=== PATIENT | male | born 1980 | race Caucasian/White ===

== ENCOUNTER 2024-03-04 10:59 | Outpatient (REF) | payer BC, SELFPAY ==
[2024-03-04 11:07] LABS: MANUAL DIFF FLAG NO
[2024-03-04 11:10] LABS: Eosinophils Absolute Auto 0.4 X10*3/uL (0.0-0.4); Eosinophils Percent Auto 8.4 % (0-4); Hematocrit 42.6 % (42.0-52.0); Hemoglobin 14.6 g/dl (14.0-18.0); Lymphocytes Absolute Auto 1.6 X10*3/uL (1.2-4.9); Lymphocytes Percent Auto 38.3 % (20-40); Mean Corpuscular HGB Conc 34.3 g/dl (31.0-36.0); Mean Corpuscular Hemoglobin 29.3 pg (27.0-33.0); Mean Corpuscular Volume 85.5 fL (80.0-98.0); Mean Platelet Volume 9.6 fL (9.4-12.4); Monocytes Absolute Auto 0.4 X10*3/uL (0.1-1.2); Monocytes Percent Auto 9.6 % (2-11); Neutrophils Absolute Auto 1.8 x10*3/uL (2.0-8.3); Neutrophils Percent Auto 42.7 % (45-73); Platelet Count 245 X10*3/uL (160-400); Red Blood Count 4.98 X10*6/uL (4.60-5.80); Red Cell Distribution Width 13.3 % (11.0-16.0); White Blood Count 4.2 X10*3/uL (4.8-10.8)
[2024-03-04 11:37] LABS: Appearance Urine Clear; Color Urine Yellow; Glucose Urine UA Negative (Negative); Leukocyte Esterase Urine Negative (Negative); Nitrite Urine Negative (Negative); Specific Gravity - Urine 1.025 (1.005-1.025); Urine Blood Negative (Negative); Urine Ketones Negative (Negative); Urine Protein Negative (Neg-Trace)
[2024-03-04 11:42] LABS: Bacteria Urine None Seen (None Seen); Hyaline Casts Urine 0-2 /LPF (0-2); RBC Urine 0-2 /HPF (0-2); Squamous Epithelial Cell Urine 0-2 /HPF (0-2); WBC Urine 0-5 /HPF (0-5)
[2024-03-04 11:45] LABS: Alanine Aminotransferase 23 U/L (0-40); Albumin Level 4.1 g/dL (3.5-5.0); Alkaline Phosphatase 61 U/L (39-117); Anion Gap 15 (12-20); Aspartate Amino Transferase 21 U/L (5-37); Bilirubin Total 0.3 mg/dL (0.0-1.0); Blood Urea Nitrogen 15 mg/dL (9-16); Calcium 9.2 mg/dL (8.4-10.2); Carbon Dioxide 27 mmol/L (22-29); Chloride 104 mmol/L (96-108); Cholesterol 178 mg/dL (<200); Estimated Glomerular Filt Rate > 60; Glucose Fasting 103 mg/dL (60-99); HDL Cholesterol 43 mg/dL (>40); LDL Cholesterol Calculated 122 mg/dL (<100); PSA,Total (Free>4and<10) 0.26 ng/mL (0.00-4.00); Sodium 142 mmol/L (135-145); Total Protein 7.1 g/dL (6.5-8.0); Triglycerides 69 mg/dL (<150)
== END 2024-03-04 11:00 | disposition home or self-care (01) ==
LOC: HO.LNP 10:59
PROVIDERS: Visit Provider Internal Medicine
DX: Z00.00 Encounter for general adult medical examination without abnormal findings (principal); Z12.5 Encounter for screening for malignant neoplasm of prostate
CPT/HCPCS: 80053; 80061; 81001; 84153; 85025

== ENCOUNTER 2024-11-11 10:47 | Day surgery (SDC) | payer BC, SELFPAY ==
[2024-11-11 11:07] VITALS: BP 150/92; PULSE 74; RESP 16; TEMP 36.3; O2SAT 99; BMI 30.5
--- NOTE | 2024-11-11 11:29 | P.CONAN_ITS ---
[facility] Past Medical History Medical History (Updated 11/11/24 @ 11:06 by Karolina Kulkarni RN) ADRIANA (obstructive sleep apnea) Family History Family history of problems with anesthesia: No Surgical History Surgical History (Updated 11/11/24 @ 11:06 by Karolina Kulkarni RN) Hx of left knee surgery History of Problems with Anesthesia: No Social History Social History Are you a primary career and guidance counselor to a significant other at home: No Do you presently have visiting nurse or other home services: No Patient Tobacco Use Status: Former Tobacco user Use of substances other than those prescribed or required for medical reasons: No Have you been hit, kicked, punched, or otherwise hurt by someone within the past year? If so, by whom?: No Are you DNR?: No Advance Directives: No Advance Directives Information Provided: No Advance Directives on File: No Recently lost weight without trying: No How much weight loss: Not applicable Eating poorly because of decreased appetite: No Nutrition screen score: 0 Nutrition Risks: No Nutritional Risk Poor oral hygiene: No Meds Allergies Allergy/AdvReac Type Severity Reaction Status Date / Time Penicillins [PCN] Allergy Intermediate Swelling Verified 11/11/24 11:00 cinnamon AdvReac Intermediate Canker Verified 11/11/24 11:01 Sores Home Medications ?Medication ?Instructions ?Recorded ?Confirmed ?Last Taken ?Type No Known Home Meds 11/11/24 11/11/24 Unknown History Exam Height,Weight and Vital Signs: Height 5 ft 11 in Weight 99.155 kg Last Vital Signs Temp 97.4 F 11/11/24 11:07 Pulse 74 11/11/24 11:07 Resp 16 11/11/24 11:07 BP 150/92 H 11/11/24 11:07 Pulse Ox 99 11/11/24 11:07 O2 Del Method Room Air 11/11/24 11:07 Airway Mallampati Class: II (perm retainer top) TM Dist: >3cm Neck ROM: Full Heart: rrr Lungs: cta Assessment and Plan Assessment Anesthesia Assessment: Anesthesia Plan Discussed and Chart Reviewed Final Anesthetic Review Family History of Problems with Anesthesia: No History of Problems with Anesthesia: No NPO: Yes ASA Class: II Final Preanesthetic Review: No Changes in Pt Med Stat, Meds/Allgs Chart Reviewed and Consent Obtained/Reviewed Patient Risk: Low Procedure Risk: Low Anesthetic Plan Anesthetic Plan: MAC: Disposition: Standard PACU
[2024-11-11 13:02] VITALS: BP 99/72; PULSE 81; RESP 16; TEMP 36.1; O2SAT 96
--- NOTE | 2024-11-11 13:09 | P.BOP_ITS ---
Brief Operative Note Date of Service: 11/11/24 Pre-op diagnosis: Screening Post-op diagnosis: other (Internal hemorrhoids) Procedure: Colonoscopy to the cecum and TI Surgeon: Iván Stein MD Anesthesia: MAC Was an Machine Woodworking Sander used for this Procedure?: No Estimated blood loss (mL): 0 Pathology: none sent Condition: stable Disposition: PACU
[2024-11-11 13:17] VITALS: BP 101/62; PULSE 65; RESP 16; O2SAT 95
--- NOTE | 2024-11-11 13:43 | OP_ITS ---
DATE OF SERVICE: 11/11/2024 SURGEON: Iván Stein MD INDICATIONS: The patient presents for evaluation of colorectal cancer screening and family history of colorectal cancer and polyps. Full consent obtained from him for this, including risks of bleeding and perforation. PREOPERATIVE DIAGNOSIS: POSTOPERATIVE DIAGNOSIS: PROCEDURE PERFORMED: Colonoscopy to the cecum and terminal ileum. ESTIMATED BLOOD LOSS: COMPLICATIONS: ANESTHESIA: Monitored anesthesia care. ASSISTANTS: SPECIMENS: PREOPERATIVE DIAGNOSES: Colorectal cancer screening and family history of colorectal cancer and polyps. POSTOPERATIVE DIAGNOSES: Colorectal cancer screening and family history of colorectal cancer and polyps. Internal hemorrhoids. DESCRIPTION OF PROCEDURE: The patient was placed in the left lateral decubitus position. The digital rectal exam revealed no abnormalities. The Olympus video pediatric colonoscope was entered into the rectum and advanced easily to the cecum. Once in the cecum, I identified a normal-appearing cecal pouch with appendiceal orifice and a normal-appearing ileocecal valve. The terminal ileum was cannulated and appeared normal. Scope withdrawn back in the colon. The entire cecum and ileocecal valve appeared normal. The scope was slowly withdrawn, assessing all mucosal surfaces carefully. Preparation was excellent. I did not visualize any sign of polyps, colitis, nor angiodysplasia. In the rectum, scope was retroflexed, visualizing internal hemorrhoids, but no other pathology. The rectal mucosa appeared normal. The scope was straightened and withdrawn from the patient. He tolerated the procedure well and was returned to recovery area in stable condition. IMPRESSION: Internal hemorrhoids. PLAN: Given his family history of his father having had colorectal cancer and 2 brothers having had colon polyps, I recommended another colonoscopy for screening in 5 years rather than 10 despite having the negative colonoscopy today. He will see me in the interim on a p.r.n. basis. This has been discussed with his . MD PABLO Stephen/TEJAS / [phone] MTDKishor
== END 2024-11-11 13:37 | disposition home or self-care (01) ==
PROVIDERS: PCP Internal Medicine; Visit Provider Internal Medicine
PROC: 0DJD8ZZ Inspection of Lower Intestinal Tract, Via Natural or Artificial Opening Endoscopic (ICD-10-PCS; CPT 45378; principal; 2024-11-11 12:00)
DX: Z12.11 Encounter for screening for malignant neoplasm of colon (principal); Z80.0 Family history of malignant neoplasm of digestive organs; Z83.719 Family history of colon polyps, unspecified; K64.8 Other hemorrhoids; Z98.890 Other specified postprocedural states; Z88.0 Allergy status to penicillin
CPT/HCPCS: 45378; J2003; J2704

== ENCOUNTER 2025-03-07 10:28 | Outpatient (REF) | payer BC, SELFPAY ==
[2025-03-07 10:30] LABS: MANUAL DIFF FLAG NO
--- OUTSIDE RECORDS SUMMARY | 2025-03-07 10:53 | XMS_ITS ---
Author Organization [facility] Address [address] [place] [phone] Care Team Providers Care Change Coordinator Name Role Phone Live Cunningham MD Primary Care Provider Iván Richards Unavailable [phone] Allergies Allergen (clinical drug ingredient) Drug/Non Drug Allergy documented on EMR Reaction Allergy Type Onset Date Status Penicillin Unknown Drug Allergy Active REASON FOR VISIT Patient presents today for colon screening Immunizations Vaccine Route Administration Date Status Comme nts Influenza Unknown 07/17/2024 Refused Social History Tobacco Use: Social History Observation Description Date Details (start date - stop date) Never Smoker NA - NA Tobacco Use/Smoking Question Answer Notes Patient is a nonsmoker Alcohol Screen Question Answer Notes Did you have a drink contain ing alcohol in the past year? Yes How often did you have a dri nk containing alcohol in the past year? 2 to 4 times a month (2 points) How many drinks did you have on a typical day when you were drinking in the past year? 1 or 2 drinks (0 point) How often did you have 6 or more drinks on one occasion in the past year? Never (0 point) Points 2 Interpretation Negative Section Notes: Nonsmoker; no sig alcohol Problems Problem Type SNOMED Code ICD Code Onset Dates Problem Status W/U Status Risk Notes Problem Colon cancer screening (599657397) Colon cancer screening (Z12.11) Active confirmed Problem Family History of Cancer of Colon (Situation) (172503822) Family history of colon cancer (Z80.0) Active confirmed Problem Pre-procedure evaluation check (389359397) Encounter for other preprocedural examination (Z01.818) Active confirmed Vital Signs Temperature 97.7 degrees Fahrenheit 07/17/20 24 Blood pressure systolic 000 mm Hg 07/17/20 24 Blood pressure diastolic 00 mm Hg 024 Height 5 ft 11 in in 07/17/2024 Weight 205 lb 6 oz lbs 07/17/2024 BMI 28.64 kg/m2 07/17/2024 Encounters Encounter Location Date Provider Diagnosis [facility] [address] [place] [address] 07/17/2024 Iván Stein Colon cancer screeni ng Z12.11 ; Encounter for other preprocedural examination Z01.818 and Family history of colon cancer Z80.0 Assessments Encounter Date Diagnosis (ICD Code) Assessment Notes Treatment Notes Treatment Clinical Notes Section Notes 07/17/2024 Colon cancer screening (ICD-10 - Z12.11) Overall, Feliz appears quite well. Given his age, excellent clinical appearance, and significant family history, I did recommend a colonoscopy for screening purposes. We did review the rationale for this in regard to colon cancer prevention. Full consent is obtained for this, including risks of bleeding and perforation. The procedure will be done with monitored anesthesia care. I did advise him that even if this colonoscopy is negative I would then recommend another colonoscopy approximately 5 years thereafter given his family history. Feliz was comfortable with this plan. Thank you again for allowing me to participate in Feliz's care. I shall continue to keep you advised of his progress. 07/17/2024 Encounter for other preprocedural examination (ICD-10 - Z01.818) Overall, Feliz appears quite well. Given his age, excellent clinical appearance, and significant family history, I did recommend a colonoscopy for screening purposes. We did review the rationale for this in regard to colon cancer prevention. Full consent is obtained for this, including risks of bleeding and perforation. The procedure will be done with monitored anesthesia care. I did advise him that even if this colonoscopy is negative I would then recommend another colonoscopy approximately 5 years thereafter given his family history. Feliz was comfortable with this plan. Thank you again for allowing me to participate in Feliz's care. I shall continue to keep you advised of his progress. 07/17/2024 Family history of colon cancer (ICD-10 - Z80.0) Overall, Feliz appears quite well. Given his age, excellent clinical appearance, and significant family history, I did recommend a colonoscopy for screening purposes. We did review the rationale for this in regard to colon cancer prevention. Full consent is obtained for this, including risks of bleeding and perforation. The procedure will be done with monitored anesthesia care. I did advise him that even if this colonoscopy is negative I would then recommend another colonoscopy approximately 5 years thereafter given his family history. Feliz was comfortable with this plan. Thank you again for allowing me to participate in Feliz's care. I shall continue to keep you advised of his progress. Plan Of Treatment Future Test Test Name Order Date COLONOSCOPY 07/17/2024 Next Appt Details Follow Up: prn, Reason: Progress Notes * GENOVEVA CANALESDOB:1979 (43 yo M)Acc No.[id number]:07/17/2024 Progress Notes Patient:?GENOVEVA CANALES Provider:?Iván Stein MD :1980???Age:43 Y???Sex:Male Dakota e:07/17/2024 Address:[address] [place], [place] [id number] Pcp:Live Cunningham MD Subjective: * Chief Complaints: * ???Patient presents today fo r colon screening * HPI: ???incontinence:? I saw Feliz in the office today for evaluation of colorectal cancer screening in regard to his family history of rectal cancer in his father and colon polyps in 2 brothers. ?As you know, Feliz is a healthy 43-year-old male who presently feels very well. He enjoys a good appetite, without any significant heartburn or dysphagia. His bowel movements have been regular and without any signs of bleeding. He denies any abdominal pain, jaundice, nor weight loss. He has never had a colonoscopy. He does describe his father was diagnosed with rectal cancer in his early 80s and 2 older brothers were found to have precancerous polyps on their screening colonoscopies. * ROS:?General/Constitutional:?Change in appetite?denies.?Chills?denies.?Fatigue?denies.?Ophthalmologic:?Comments?all negative.?ENT:?Comments?all negative.?Respiratory:?hemoptysis?denies.?Cough?denies.?Cardiovascular:?Chest pain?denies.?Orthopnea?denies.?Gastrointestinal:?Comments?See HPI for details.?Genitourinary:?Hematuria?denies.?Dysuria?denies.?Musculoskeletal:?Painful joints?denies.?Weakness?denies.?Skin:?Itching?denies.?Rash?denies.?Neurologic:?Headache?denies.?Seizures?denies.?Psychiatric:?Comments?all negative.? * Medical History:? * Surgical History:?Left knee MCL/ACL/Lateral meniscus 2010 * Hospitalization/Major Diagno stic Procedure:?No Hospitalization History. * Family History:?Father: dece ased.?Mother: alive.? Father had rectal cancer in his early 80's 2 Brothers had colon polyps. * Social History:?Tobacco Use:?Tobacco Use/Smoking?Patient is a?nonsmoker.?Drugs/Alcohol:?Alcohol Screen?Did you have a drink containing alcohol in the past year??Yes,?How often did you have a drink containing alcohol in the past year??2 to 4 times a month (2 points),?How many drinks did you have on a typical day when you were drinking in the past year??1 or 2 drinks (0 point),?How often did you have 6 or more drinks on one occasion in the past year??Never (0 point),?Points?2,?Interpretation?Negative.?Miscellaneous:?Marital status: . 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 ???Nonsmoker; no sig alcohol. * Medications:?None * Allergies:?Penicillinyes[All ergies Verified] Objective: * Vitals:?Wt: 205 lb 6 oz, Ht: 5 ft 11 in, BMI:28.64 Index, BP: 000/00 mm Hg, Temp: 97.7. * Examination: ???General Examination: ?GENERAL APPEARANCE:?pleasant, well nourished, well developed, in no acute distress.?EYES:?sclera non-icteric.?ORAL CAVITY:?mucosa moist.?NECK/THYROID:?no cervical lymphadenopathy, neck supple.?SKIN:?nonjaundiced, no spider angiomata.?HEART:?S1, S2 normal.?LUNGS:?clear to auscultation bilaterally.?ABDOMEN:?normal bowel sounds, no guarding or rigidity, no guarding or rigidity, no masses palpable, soft, nontender, nondistended.?EXTREMITIES:?no edema.?NEUROLOGIC:?alert and oriented.? Assessment: * Assessment: 1.?Encounter for other prepr ocedural examination - Z01.818 (Primary)?2.?Colon cancer screening - Z12.11?3.?Family history of colon cancer - Z80.0? Overall, Feliz appears quite well. Given his age, excellent clinical appearance, and significant family history, I did recommend a colonoscopy for screening purposes. We did review the rationale for this in regard to colon cancer prevention. Full consent is obtained for this, including risks of bleeding and perforation. The procedure will be done with monitored anesthesia care. I did advise him that even if this colonoscopy is negative I would then recommend another colonoscopy approximately 5 years thereafter given his family history. Feliz was comfortable with this plan. Thank you again for allowing me to participate in Feliz's care. I shall continue to keep you advised of his progress. Plan: * Treatment: 2.?Family history of colon cancer?Procedure: COLONOSCOPY (Ordered for 07/17/2024)* with MACsched for 11/11/24 at 12:30 pmmiralax * Immunizations:? Influenza (Not administered - Refused: Patient decision) * Procedure Codes:?3017F COLOR ECTAL CA SCREEN DOC [id number] TOBACCO NON-RHQEC4888 BP SCR NOT PRFRM REC REASON NOS * Preventive Medicine:? ??Counseling:?Care goal follow-up plan:?Above Normal BMI Follow-up?Giving encouragement to exercise,?BMI management provided?Yes.? * Follow Up:?prn * * Sign off status: Completed true * Provider:?Iván Stein MD Date:? 024 Generated for Pilloi melanie/Benjamin/eTransmitting on:?03/07/2025 10:53 AM EDT History and Physical Notes * HPI (History of Present Illness) Category Sub-Category Detail Notes Category Not es incontinence I saw Feliz in the office today for evaluation of colorectal cancer screening in regard to his family history of rectal cancer in his father and colon polyps in 2 brothers. As you know, Feliz is a healthy 43-year-old male who presently feels very well. He enjoys a good appetite, without any significant heartburn or dysphagia. His bowel movements have been regular and without any signs of bleeding. He denies any abdominal pain, jaundice, nor weight loss. He has never had a colonoscopy. He does describe his father was diagnosed with rectal cancer in his early 80s and 2 older brothers were found to have precancerous polyps on their screening colonoscopies. Examination Category Sub-Category Detail Notes Category Not es General Examination GENERAL APPEARANCE: pleasant , well nourished, well developed, in no acute distress HEAD: EYES: sclera non-icteric EARS: NOSE: THROAT: NECK/THYROID: no cervical lymphade nopathy, neck supple HEART: S1, S2 normal CHEST: LUNGS: clear to auscultatio n bilaterally ABDOMEN: normal bowel sounds, no guarding or rigidity, no guarding or rigidity, no masses palpable, soft, nontender, nondistended NEUROLOGIC: alert and oriented SKIN: nonjaundiced, no spi jonathan angiomata EXTREMITIES: no edema PERIPHERAL PULSES: BACK: BREASTS: MUSCULOSKELETAL: MALE GENITOURINARY: LYMPH NODES: RECTAL EXAM: FEMALE GENITOURINARY: ORAL CAVITY: mucosa moist
--- OUTSIDE RECORDS SUMMARY | 2025-03-07 10:53 | XMS_ITS ---
Author Organization Live Cunningham MD Address [address] [place] [phone] Care Team Providers Care Cabin Service Agent Name Role Phone Live Cunningham Primary Care Provider [phone] REASON FOR VISIT [facility] [place] Encounters Encounter Location Date Provider Diagnosis Live Cunningham MD [address] [place] [phone] 06/03/2024 Live Cunningham Plan Of Treatment Next Appt Details Provider Name:Live [place] ier, 03/14/2025 02:30:00 PM, [address], [address], [place], [place], [phone], Progress Notes * Gary BARRIOSDOB:1979 (43 yo M)Acc No.[id number]:06/03/2024 Patient:?Gary Barrios :1980???Age:43 Y???Sex:Male [address] [place], [address] * true * Date:? Generated for Printi ng/Faxing/eTransmitting on:?03/07/2025 10:53 AM EDT
--- OUTSIDE RECORDS SUMMARY | 2025-03-07 10:53 | XMS_ITS ---
Author Organization [facility] Address [address] [place] [phone] Care Team Providers Care Paper Machine Tender Name Role Phone Live Cunningham MD Primary Care Provider Iván Richards [phone] REASON FOR VISIT Did he cancel his colonoscopy? Encounters Encounter Location Date Provider Diagnosis [facility] [address] [place] [address] 11/10/2024 Iván Stein Plan Of Treatment No Information Progress Notes * ALLY GENOVEVADOB:1979 (44 yo M)Acc No.[id number]:11/10/2024 Patient:?ANGELINAGENOVEVA SHEIKH :1980???Age:44 Y???Sex:Male Address:[address] [place] [address], [address] * true * Date:? Generated for Dalia navarro/Benjamin/eTransmitting on:?03/07/2025 10:53 AM EDT
--- OUTSIDE RECORDS SUMMARY | 2025-03-07 10:53 | XMS_ITS ---
Author Organization [facility] Address [address] [place] [phone] Care Team Providers Care Assistant Store Manager Operations Name Role Phone Marisa COLE, Live Primary Care Provider Iván Richards Unavailable [phone] REASON FOR VISIT screening,fam hx colon ca Encounters Encounter Location Date Provider Diagnosis [facility] [address] [place] [phone] 11/11/2024 Iván Stein Plan Of Treatment No Information Progress Notes * GENOVEVA CANALESDOB:1979 (44 yo M)Acc No.[id number]:11/11/2024 COLON WITH MAC Patient:?GENOVEVA CANALES Provider:?Iván Stein MD :1980???Age:44 Y???Sex:Male Dakota e:11/11/2024 Address:[address] [place], [place] [phone] Pcp:Live Cunningham MD Subjective: * Chief Complaints: * ???1. Screening,fam hx colon ca. * Medical History:? Objective: * Vitals:? Assessment: Plan: * Treatment: * * The named appointment provid er may or may not be the originator of this progress note, and it is not deemed complete until electronically signed by the appointment provider. Sign off status: Pending * Provider:?Iván Stein MD Date:? 025 Generated for Pilloi ng/Fagemmag/eTransmitting on:?03/07/2025 10:53 AM EDT
--- OUTSIDE RECORDS SUMMARY | 2025-03-07 10:53 | XMS_ITS ---
Author Organization Live Cunningham MD Address [address] [place] [phone] Care Team Providers Care Supervisor Sterile Processing Name Role Phone Live Cunningham Primary Care Provider REASON FOR VISIT REFILL TERBINAFINE Medications Medication SIG (Take, Route, Fr equency, Duration) Notes Start Date End Date Status Terbinafine HCl 250 MG 1 tablet Orally O nce a day for 90 days 03/11/2024 Active Encounters Encounter Location Date Provider Diagnosis Live Cunningham MD [address] [place] [phone] 06/13/2024 Live Cunningham Onychomycosis of toenail B35.1 Assessments Encounter Date Diagnosis (ICD Code) Assessment Notes Treatment Notes Treatment Clinical Notes Section Notes 06/13/2024 Onychomycosis of toenail (ICD-10 - B35.1) Plan Of Treatment Medication Medication Name Sig Start Date Stop Date Notes Terbinafine HCl 250 MG 1 tablet Orally O nce a day for 90 days 03/11/2024 Next Appt Details Provider Name:Live [place] ier, 03/14/2025 02:30:00 PM, [address], Suite [facility] [place], [place], [phone], Progress Notes * Gary BARRIOSDOB:1979 (43 yo M)Acc No.[id number]:06/13/2024 Patient:?RonnieGary :1980???Age:43 Y???Sex:Male Address:[address] [facility] [place], [address] * Refills? Refill Terbinafine HCl Tablet, 250 MG, Orally, 90 Tablet, 1 tablet, Once a day, 90 days, Refills=0 * true * Date:? Generated for Dalia navarro/Benjamin/Sarahitting on:?03/07/2025 10:53 AM EDT
--- OUTSIDE RECORDS SUMMARY | 2025-03-07 10:53 | XMS_ITS ---
Author Organization Live Cunningham MD Address [address] [place] [phone] Care Team Providers Care Infertility Medical Assistant Name Role Phone Live Cunningham Primary Care Provider REASON FOR VISIT yearly fasting labs Encounters Encounter Location Date Provider Diagnosis Live Cunningham MD [address] [place] [address] [place] [phone] 03/07/2025 Live Cunningham Blood tests for routine general physical examination Z00.00 Assessments Encounter Date Diagnosis (ICD Code) Assessment Notes Treatment Notes Treatment Clinical Notes Section Notes 03/07/2025 Blood tests for routine general physical examination (ICD-10 - Z00.00) Plan Of Treatment Pending Test Test Name Order Date Complete Blood Count Auto Diff 5 Comprehensive [place]. Panel Fast 5 Lipid Panel 03/07/2025 PSA,Total (Free>4and<10) 03/07/2025 UA ClnCatch+Micro w/rflx Cult 03/07/2025 Next Appt Details Provider Name:Live [place] ier, 03/14/2025 02:30:00 PM, [address], Suite [facility], [place], [place], [phone], Progress Notes * Gary BARRIOSDOB:1979 (44 yo M)Acc No.[id number]:03/07/2025 Progress Note Patient:?DAVIDRONITBEREKETGary Provider:?Live Cunningham MD :1980???Age:44 Y???Sex:Male Dakota e:03/07/2025 Address:[address], [phone] Subjective: * Chief Complaints: * ???1. Yearly fasting labs. * Medical History:? Objective: * Vitals:? Assessment: * Assessment: 1.?Blood tests for routine g eneral physical examination - Z00.00 (Primary)??? Plan: * Treatment: * Procedure Codes:?58455 VENIP UNCT, ROUTINE* * * The named appointment provid er may or may not be the originator of this progress note, and it is not deemed complete until electronically signed by the appointment provider. Sign off status: Pending * Provider:?Live Cunningham MD Date:?0 03/07/2025 Generated for Dalia navarro/Benjamin/Sarahitting on:?03/07/2025 10:52 AM EDT
--- OUTSIDE RECORDS SUMMARY | 2025-03-07 10:53 | XMS_ITS | Patient Health Record ---
Author Organization Live Cunningham MD Address [address] [place] [phone] Care Team Providers Care Community Case Manager Name Role Phone Live Cunningham Primary Care Provider Allergies Allergen (clinical drug ingredient) Drug/Non Drug Allergy documented on EMR Reaction Allergy Type Onset Date Status Penicillin eye swelling Drug Allergy Act jeff Results Component Value Reference Range Notes Occult Blood, Stool, Guaiac Reviewed date:03/11/2024 03:17:38 PM Interpretation:Negative Performing Lab: Notes/Report: Negative Occult Blood, Stool, Guaiac Neg Reason For Referral Reason needs colonoscopy Diagnosis 1 Annual physical exam (Z00.00) Referral Organization Live Cunningham MD Referring Provider First Name Live Referring Provider Last Name Marisa Referring Provider Speciality Internal M edicine Referred Provider Iván Stein Referred Provider Specialty Gastroentero logy General Notes Trinity Espinoza 01:17:40 PM EDT > info faxed , Trinity Espinoza 03/26/2024 02:20:18 PM EDT > info mailed to patient, Jazmin Rivas 08/02/2024 12:44:37 PM EDT > NOTES RECD FROM VISIT Referral Priority Routine Referral Appointment Date 07/17/2024 Medications Medication SIG (Take, Route, Fr equency, Duration) Notes Start Date End Date Status Terbinafine HCl 250 MG 1 tablet Orally O nce a day for 90 days 03/11/2024 Active Immunizations Vaccine Route Administration Date Status Comme nts SARS-COV-2 Pfizer Unknown 01/04/2021 Administered SARS-COV-2 Pfizer Unknown 01/25/2021 Administered SARS-COV-2 Moderna Unknown 08/25/2022 Administered Vanessa gómez's Fluarix Quadrivalent Unknown 08/26/2022 Administered Henrry limon's Social History Tobacco Use: Social History Observation Description Date Details (start date - stop date) Never Smoker NA - NA Tobacco Use/Smoking Question Answer Notes Patient is a nonsmoker Additional Findings: Tobacco Non-User Cu rrent non-smoker, currently using no form of tobacco Alcohol Screen Question Answer Notes Did you have a drink contain ing alcohol in the past year? Yes How often did you have a dri nk containing alcohol in the past year? 4 or more times a week (4 points) How many drinks did you have on a typical day when you were drinking in the past year? 1 or 2 drinks (0 point) How often did you have 6 or more drinks on one occasion in the past year? Never (0 point) Points 4 Interpretation Positive Problems Problem Type SNOMED Code ICD Code Onset Dates Problem Status W/U Status Risk Notes Problem Onychomycosis (668022585) Onychomycosis (B35.1) Active confirmed Problem 73158473 ADRIANA (obstructive sleep apnea) (G47.33) Active confirmed Vital Signs Blood pressure diastolic 60 mm Hg 03/11/2024 Height 70 in 03/11/2024 Blood pressure systolic 104 mm Hg 03/11/2024 Weight 208 lbs 03/11/2024 BMI 29.84 kg/m2 03/11/2024 Encounters Encounter Location Date Provider Diagnosis Live Cunningham MD [address] [place] [id number] 03/11/2024 Live Cunningham Annual physical exam Z00.00 ; Onychomycosis of toenail B35.1 ; Colon cancer screening Z12.11 and Depression screening Z13.31 Live Cunningham MD [address] [place] [id number] 03/07/2025 Live Cunningham Blood tests for routine general physical examination Z00.00 Live Cunningham MD [address] [place] [address] [id number] 06/03/2024 Live Cunningham MD [address] [place] [address] [id number] 06/13/2024 Live Cunningham Onychomycosis of toenail B35.1 Assessments Encounter Date Diagnosis (ICD Code) Assessment Notes Treatment Notes Treatment Clinical Notes Section Notes 03/11/2024 Annual physical exam (ICD-10 - Z00.00) labs reviewed and discussed with patient, needs colonsocpy referral 03/11/2024 Onychomycosis of toenail (ICD-10 - B35.1) patient verbalized understanding of medication and directions for use 03/07/2025 Blood tests for routine general physical examination (ICD-10 - Z00.00) 06/13/2024 Onychomycosis of toenail (ICD-10 - B35.1) 03/11/2024 Colon cancer screening (ICD-10 - Z12.11) guaiac negative 03/11/2024 Depression screening (ICD-10 - Z13.31) negative screen Plan Of Treatment Pending Test Test Name Order Date Complete Blood Count Auto Diff 5 Comprehensive [place]. Panel Fast 5 Lipid Panel 03/07/2025 PSA,Total (Free>4and<10) 03/07/2025 UA ClnCatch+Micro w/rflx Cult 03/07/2025 Next Appt Details Provider Name:Live flanaganr, 03/14/2025 02:30:00 PM, [address] [place] [address], [address], [place], [place], [phone], Insurance Providers Payer Name Payer Address Payer Phone Subscriber Number Group Number Insured Name Patient Relationship to Insured Coverage Start Date Coverage End Date [employer] [address] [place], [place] [phone] [phone] [id number] Gary Greene Self - patient is the insured Medical (General) History Medical History History ICD Code colonoscopy 11/11/24 repeat 5y
--- OUTSIDE RECORDS SUMMARY | 2025-03-07 10:54 | XMS_ITS | Patient Health Record ---
Author Organization [facility] Address [address] [place] [address] Care Team Providers Care Multi Punch Operator Name Role Phone Live Lopez MD Primary Care Provider Iván Richards Unavailable [phone] Allergies Allergen (clinical drug ingredient) Drug/Non Drug Allergy documented on EMR Reaction Allergy Type Onset Date Status Penicillin Unknown Drug Allergy Active Reason For Referral Referring Provider First Name Live Referring Provider Last Name Marisa Referring Provider Speciality Internal M edicine Referred Organization [facility] Referred Provider Iván Stein Referred Address [address] [facility],[place], [place],[address],[place] Referred Provider Specialty Gastroentero logy General Notes Soraida Ivey 024 03:39:39 PM EDT > CALL DR LOPEZ'S OFFICE TO REQUEST AN [facility] REFERRAL FOR VISIT WITH DR LUNSFORD SON 07-17-2024 EX [id number], Soraida Ivey 06/03/2024 03:40:03 PM EDT > REQUESTED REFERRAL FROM DR LOPEZ'S OFFICE Referral Priority Routine Immunizations Vaccine Route Administration Date Status Comme [...] Status Risk Notes Problem Colon cancer screening (486106358) Colon cancer screening (Z12.11) Active confirmed Problem Pre-procedure evaluation check (946563412) Encounter for other preprocedural examination (Z01.818) Active confirmed Problem Family History of Cancer of Colon (Situation) (615067920) Family history of colon cancer (Z80.0) Active confirmed Vital Signs Temperature 97.7 degrees Fahrenheit 07/17/2024 Blood pressure diastolic 00 mm Hg 07/17/2024 Height 5 ft 11 in in 07/17/2024 Blood pressure systolic 000 mm Hg 07/17/2024 Weight 205 lb 6 oz lbs 07/17/2024 BMI 28.64 kg/m2 07/17/2024 Encounters Encounter Location Date Provider Diagnosis [facility] [address] [place] [id number] 11/11/2024 Iván Stein [facility] [address] [place] [phone] 07/17/2024 Iván Sarita Colon cancer screeni ng Z12.11 ; Encounter for other preprocedural examination Z01.818 and Family history of colon cancer Z80.0 [facility] [address] [place] [phone] 11/10/2024 Iván Stein Assessments Encounter Date Diagnosis (ICD Code) Assessment [...] Test Test Name Order Date COLONOSCOPY 07/17/2024 Insurance Providers Payer Name Payer Address Payer Phone Subscriber Number Group Number Insured Name Patient Relationship to Insured Coverage Start Date Coverage End Date [facility] [employer] [address] [place] [address] [id number] [id number] [id number] Self - patient is the insured Medical (General) History Surgical History Surgery Date(Month/Year) Left knee MCL/ACL/Lateral meniscus 2010
[2025-03-07 10:59] LABS: Basophils Percent Auto 0.7 % (0-2); Eosinophils Absolute Auto 0.2 X10*3/uL (0.0-0.4); Eosinophils Percent Auto 4.6 % (0-4); Hematocrit 41.6 % (42.0-52.0); Imm Gran Abs Auto 0.01 X10*3/uL (0.00-0.03); Imm Gran Pct Auto 0.2 % (0.0-0.4); Lymphocytes Absolute Auto 1.7 X10*3/uL (1.2-4.9); Lymphocytes Percent Auto 38.2 % (20-40); Mean Corpuscular HGB Conc 33.7 g/dl (31.0-36.0); Mean Corpuscular Hemoglobin 28.8 pg (27.0-33.0); Mean Corpuscular Volume 85.6 fL (80.0-98.0); Mean Platelet Volume 9.6 fL (9.4-12.4); Monocytes Absolute Auto 0.5 X10*3/uL (0.1-1.2); Monocytes Percent Auto 10.4 % (2-11); Neutrophils Percent Auto 45.9 % (45-73); Platelet Count 240 X10*3/uL (160-400); Red Blood Count 4.86 X10*6/uL (4.60-5.80); Red Cell Distribution Width 13.2 % (11.0-16.0); White Blood Count 4.3 X10*3/uL (4.8-10.8)
[2025-03-07 11:06] LABS: Appearance Urine Clear; Color Urine Yellow; Glucose Urine UA Negative (Negative); Leukocyte Esterase Urine Negative (Negative); Nitrite Urine Negative (Negative); Specific Gravity - Urine 1.015 (1.005-1.025); Urine Blood Negative (Negative); Urine Ketones Negative (Negative); Urine Protein Negative (Neg-Trace)
[2025-03-07 11:10] LABS: Bacteria Urine None Seen (None Seen); Hyaline Casts Urine 0-2 /LPF (0-2); RBC Urine 0-2 /HPF (0-2); Squamous Epithelial Cell Urine 0-2 /HPF (0-2); WBC Urine 0-5 /HPF (0-5)
[2025-03-07 11:35] LABS: Alanine Aminotransferase 30 U/L (0-40); Albumin Level 4.2 g/dL (3.5-5.0); Alkaline Phosphatase 48 U/L (39-117); Anion Gap 11 (12-20); Aspartate Amino Transferase 26 U/L (5-37); Bilirubin Total 0.8 mg/dL (0.0-1.0); Blood Urea Nitrogen 15 mg/dL (9-16); Calcium 9.1 mg/dL (8.4-10.2); Carbon Dioxide 28 mmol/L (22-29); Chloride 104 mmol/L (96-108); Cholesterol 203 mg/dL (<200); Estimated Glomerular Filt Rate > 60; Glucose Fasting 105 mg/dL (60-99); HDL Cholesterol 41 mg/dL (>40); LDL Cholesterol Calculated 130 mg/dL (<100); Potassium 3.9 mmol/L (3.3-5.1); Sodium 139 mmol/L (135-145); Triglycerides 160 mg/dL (<150)
[2025-03-07 11:36] LABS: PSA,Total (Free>4and<10) 0.32 ng/mL (0.00-4.00)
== END 2025-03-07 10:29 | disposition home or self-care (01) ==
LOC: HO.LNP 10:28
PROVIDERS: Visit Provider Internal Medicine
DX: Z00.00 Encounter for general adult medical examination without abnormal findings (principal); Z12.5 Encounter for screening for malignant neoplasm of prostate
CPT/HCPCS: 80053; 80061; 81001; 84153; 85025